=== PATIENT | male | born 1980 | race Caucasian/White ===

== ENCOUNTER 2018-11-29 15:03 | Emergency (ER) | payer SELFPAY ==
[~2018-11-29] VITALS: Ht 170.2 cm; Wt 65.9 kg
[2018-11-29 15:06] VITALS: BP 149/92; TEMP 97.5
[2018-11-29] MEDS ORDERED: AMOXICILLIN 50500 MG PO (15:22)
[2018-11-29] MEDS ORDERED: NORCO 325 MG-51 TAB PO (15:22)
[2018-11-29 15:40] VITALS: PULSE 85
== END 2018-11-29 15:40 | disposition home or self-care (01) ==
LOC: COL.ER 15:03
DX: K02.9 Dental caries, unspecified (principal)